=== PATIENT | male | born 1995 | race Caucasian/White ===

== ENCOUNTER → 2016-11-12 | Outpatient (CLI) | payer OTHER ==
--- NOTE | 2016-11-12 17:30 | DIAGNOSTIC IMAGING REPORT ---
LEFT FOOT 3 VIEWS HISTORY: Left first MTP joint pain COMPARISON: None. FINDINGS: There is no fracture or dislocation. Soft tissues are unremarkable. No radiopaque foreign bodies. No bony erosions. The Lisfranc joint is intact. Cartilage spaces are maintained for age. IMPRESSION: Unremarkable left foot. Electronically signed by: Linwood Chapa M.D. 11/12/2016 5:29 PM Dictated Date/Time: 11/12/2016 5:27 PM
== END | disposition home or self-care (01) ==
LOC: C.RAD 16:15
PROVIDERS: ATTEND Podiatrist Foot & Ankle Surgery
DX: M25.572 Pain in left ankle and joints of left foot (principal)